=== PATIENT | female | born 1990 | race Caucasian/White ===

== ENCOUNTER 2020-02-24 03:48 | Inpatient (IN) | payer OTHER ==
[~2020-02-24] VITALS: Ht 160 cm; Wt 50.9 kg
[2020-02-24] VITALS (15 sets, daily range): BP systolic 90–111; BP diastolic 50–73
[2020-02-24] MEDS ORDERED: nitroGLYCERIN 1gm ointment UD TP ONE (03:55)
[2020-02-24] MEDS ORDERED: morphine 4 MG/ML inj SYRINge IV ONE (04:15)
[2020-02-24] MEDS ORDERED: ondansetron/PF 4mg/2ml inj IV ONE (04:15)
[2020-02-24] MEDS ORDERED: normal saline 1000ML IV soln IVB ONE (04:15)
[2020-02-24] MEDS ORDERED: morphine 2 MG/ML inj. syringe IV PRN ×4 (04:15→11:15)
[2020-02-24] MEDS ORDERED: iohexol 300mg/ml 100ml inj. ONE (04:30)
[2020-02-24 04:42] LABS: BASOPHILS # (AUTO) 0.1 X10'3 (0-0.2); BASOPHILS % (AUTO) 0.3 % (0-1); EOSINOPHILS # (AUTO) 0.2 X10'3 (0-0.9); HEMATOCRIT 38.4 % (35.0-45.0); LYMPHOCYTES % (AUTO) 3.9 % (21-51); MEAN CORPUSCULAR HEMOGLOBIN 29.7 PG (27.0-31.0); MEAN CORPUSCULAR HGB CONC 33.8 g/dL (33.0-36.5); MEAN CORPUSCULAR VOLUME 87.8 FL (78-98); MEAN PLATELET VOLUME 10.6 FL (7.4-10.4); NEUTROPHILS # (AUTO) 22.6 X10'3 (1.8-7.7); NEUTROPHILS % (AUTO) 90.8 % (42-75); PLATELET COUNT 256 X10'3 (140-440); RED BLOOD COUNT 4.37 X10'6 (4.20-5.60); RED CELL DISTRIBUTION WIDTH 11.9 % (11.5-14.5); WHITE BLOOD COUNT 24.9 X10'3 (4.5-11.0)
[2020-02-24 04:47] LABS: PARTIAL THROMBOPLASTIN TIME 29 SECONDS (22-32)
[2020-02-24 04:50] LABS: ALANINE AMINOTRANSFERASE 19 U/L (12-78); ALBUMIN 3.2 G/DL (3.4-5.0); ALBUMIN/GLOBULIN RATIO 0.8 (1.1-1.5); ALKALINE PHOSPHATASE 109 IU/L (46-116); ANION GAP 8 (8-16); ASPARTATE AMINO TRANSFERASE 18 U/L (10-37); BILIRUBIN,TOTAL 0.5 MG/DL (0.1-1.0); BLOOD UREA NITROGEN 6 MG/DL (7-18); CALCIUM 8.7 MG/DL (8.5-10.1); CHLORIDE 105 MMOL/L (99-107); GLUCOSE 95 MG/DL (70-104); POTASSIUM 4.1 MMOL/L (3.5-5.1); SODIUM 142 MMOL/L (135-145); TOTAL CARBON DIOXIDE 29.5 MMOL/L (24-32); TOTAL PROTEIN 7.3 G/DL (6.4-8.2); eGFR 65 ML/MIN
[2020-02-24 04:57] LABS: TOTAL CELLS COUNTED 100
[2020-02-24 04:58] LABS: PLATELET ESTIMATE NORMAL
[2020-02-24] MEDS ORDERED: piperacillin/tazo 3.375gm/50ml 50 ML IV ONE (05:35)
[2020-02-24] MEDS ORDERED: MULT-85 PO (05:39)
[2020-02-24] MEDS: ondansetron/PF 4mg/2ml inj IV PRN ×2 (06:18→20:42)
[2020-02-24] MEDS ORDERED: LIDOcaine 2% 10ml TOPICAL JELLY (Urojet) TP ONE (06:20)
[2020-02-24] MEDS: normal saline 1000ml 1,000 ML IV SCH ×2 (07:10→16:33)
[2020-02-24] MEDS ORDERED: metroNIDAZOLE-Flagyl 500mg/NS 100 ML IV SCH (08:00)
--- NOTE | 2020-02-24 10:10 | NUR ---
Patient in room [facility]. I have received report from BIOLOGICAL LAB TECHNICIAN and had the opportunity to ask questions and assume patient care.
--- NOTE | 2020-02-24 10:50 | NUR ---
Problems reprioritized. Patient report given, questions answered & plan of care reviewed with Lee FORBES.
[2020-02-24] MEDS ORDERED: labetalol 20mg/4ml (5mg/ml) syringe IV PRN (11:15)
[2020-02-24] MEDS ORDERED: ondansetron/PF 4mg/2ml inj IV PRN (11:15)
[2020-02-24] MEDS ORDERED: ringers solution, lacted 1,000 ML IV SCH (11:15)
[2020-02-24] MEDS ORDERED: morphine 4 MG/ML inj SYRINge IV PRN (11:15)
[2020-02-24] MEDS ORDERED: hydrALAZINE 20mg/ml inj. IV PRN (11:15)
[2020-02-24] MEDS ORDERED: fentaNYL/PF 50MCG/1 ML 2ML syringe IV PRN ×2 (11:15)
[2020-02-24] MEDS ORDERED: LIDOcaine 1% w/epiNEPHrine 1:200,000 30ml vial ONE (11:27)
[2020-02-24] MEDS ORDERED: fentaNYL/PF 50MCG/1 ML 2ML syringe ONE (11:37)
[2020-02-24] MEDS ORDERED: MIDAZolam 5mg/5ml vial ONE (11:38)
--- NOTE | 2020-02-24 12:27 | NUR ---
Received from OR via surgical bed, accompanied by Anesthesiologist Karli and report given by Anesthesiolgist. Pt alert and orietned sats at 98% with no O2 and pain 0/10. Pt has feeling in both lower extremeties and moves toes. Gauze dressing to groin, escoto cath wtih clear yellow fluid. 20G to right AC present wtih LR at 100cc/hr.
--- NOTE | 2020-02-24 13:00 | NUR ---
Patient in room [facility]. I have received report from Kiarra FORBES and had the opportunity to ask questions and assume patient care.
--- NOTE | 2020-02-24 13:07 | NUR ---
Report called to receiving nurse. Transferred via surgical bed. Belongings in patients room. Special Issues communicated to receiving nurse Jack RN who is at bedside. BLL call light within reach VS stable and chart at bedside. Pt care transferred to Jack RN.
--- NOTE | 2020-02-24 16:23 | NUR ---
PAGER ID: [phone] MESSAGE: Jack Surg [id number] Re: [id number] Wenceslao Clarita Patient is back from procedure and I was wondering if you wanted to add a diet. Thanks Jack
[2020-02-24] MEDS: piperacillin/tazo 3.375gm/50ml 50 ML IV SCH ×2 (16:33→23:32)
--- NOTE | 2020-02-24 18:14 | NUR ---
Problems reprioritized. Patient report given, questions answered & plan of care reviewed with Cesilia FORBES.
--- NOTE | 2020-02-24 18:25 | NUR ---
Received report from primary care nurse Jack RN. Assumed patient care. Patient is awake and alert on room air. In no apparent distress. Call light and items of frequent use within reach. Will continue to monitor for changes.
[2020-02-24] MEDS: lactobacillus rhamnosus 10,000 MMU CELLS/CAPSULE PO SCH (19:39)
--- NOTE | 2020-02-24 20:20 | NUR ---
Paged MD to address patient requesting PO pain medication instead of IV. Pending call back
[2020-02-24] MEDS ORDERED: HYDROcodone/acetaminophen 10/325mg tab PO PRN (20:50)
[2020-02-24] MEDS: HYDROcodone/acetaminophen 5mg/325mg tablet PO PRN (23:29)
[2020-02-25] VITALS: BP 101/48
[2020-02-25] MEDS: normal saline 1000ml 1,000 ML IV SCH ×2 (01:51→10:51)
--- NOTE | 2020-02-25 06:25 | NUR ---
Reported off to Dory FORBES. Patient is awake and alert on room air in no apparent distress. Call light and items of frequent use within reach.
[2020-02-25 06:27] LABS: BASOPHILS % (AUTO) 0.2 % (0-1); EOSINOPHILS # (AUTO) 0.4 X10'3 (0-0.9); EOSINOPHILS % (AUTO) 2.1 % (0-6); HEMATOCRIT 34.9 % (35.0-45.0); HEMOGLOBIN 11.6 g/dl (12.0-16.0); LYMPHOCYTES # (AUTO) 2.4 X10'3 (1.1-4.8); LYMPHOCYTES % (AUTO) 11.3 % (21-51); MEAN CORPUSCULAR HEMOGLOBIN 29.3 PG (27.0-31.0); MEAN CORPUSCULAR HGB CONC 33.3 g/dL (33.0-36.5); MEAN CORPUSCULAR VOLUME 88.1 FL (78-98); MEAN PLATELET VOLUME 10.6 FL (7.4-10.4); MONOCYTES # (AUTO) 1.7 X10'3 (0-0.9); MONOCYTES % (AUTO) 7.9 % (2-12); NEUTROPHILS # (AUTO) 16.9 X10'3 (1.8-7.7); NEUTROPHILS % (AUTO) 78.5 % (42-75); PLATELET COUNT 236 X10'3 (140-440); RED BLOOD COUNT 3.96 X10'6 (4.20-5.60); RED CELL DISTRIBUTION WIDTH 11.9 % (11.5-14.5); WHITE BLOOD COUNT 21.5 X10'3 (4.5-11.0)
[2020-02-25 06:40] LABS: ALBUMIN 2.5 G/DL (3.4-5.0); ANION GAP 3 (8-16); BLOOD UREA NITROGEN 10 MG/DL (7-18); BUN/CREATININE RATIO 9.3 (6.6-38.0); CALCIUM 8.4 MG/DL (8.5-10.1); CHLORIDE 106 MMOL/L (99-107); CREATININE 1.08 MG/DL (0.40-0.90); GLUCOSE 70 MG/DL (70-104); POTASSIUM 4.3 MMOL/L (3.5-5.1); SODIUM 140 MMOL/L (135-145); TOTAL CARBON DIOXIDE 30.9 MMOL/L (24-32); eGFR 60 ML/MIN
[2020-02-25] MEDS: lactobacillus rhamnosus 10,000 MMU CELLS/CAPSULE PO SCH (07:14)
[2020-02-25 08:00] VITALS: BP 94/59
[2020-02-25] MEDS ORDERED: docusate sod 100mg capsule PO SCH (08:00)
[2020-02-25 08:18] LABS: LARGE PLATELETS FEW; PLATELET ESTIMATE NORMAL
[2020-02-25] MEDS: piperacillin/tazo 3.375gm/50ml 50 ML IV SCH ×2 (08:47→16:00)
[2020-02-25] MEDS: HYDROcodone/acetaminophen 5mg/325mg tablet PO PRN (08:48)
[2020-02-25 11:46] VITALS: BP 97/55
[2020-02-25] MEDS ORDERED: AMOX-100 PO (15:56)
--- NOTE | 2020-02-25 18:25 | NUR ---
Problems reprioritized. Patient report given, questions answered & plan of care reviewed with MOHIT FORBES.
--- NOTE | 2020-02-25 18:26 | NUR ---
Received report from primary care nurse Dory FORBES. Patient is awake and alert on room air and has been discharged pending arrival of ride. ETA 10 minutes.
--- NOTE | 2020-02-25 18:32 | NUR ---
Patient discharged with instructions and belongings.
== END 2020-02-25 18:38 | disposition home or self-care (01) | DRG 872 ==
LOC: ER 03:50 → ED HOLD 05:46 → UNDOADMIN 06:24 → ED HOLD 10:15 → SUR 3N 10:15
PROVIDERS: ADMIT Internal Medicine; ATTEND Internal Medicine
PROC: 0D9P3ZZ Drainage of Rectum, Percutaneous Approach (ICD-10-PCS; principal; 2020-02-24 11:44)
DX: A41.9 Sepsis, unspecified organism (principal); K61.2 Anorectal abscess; K62.89 Other specified diseases of anus and rectum
CPT/HCPCS: 99285; Z7506; 36415; 72193; 80048; 80053; 83605; 84145; 85025; 85610; 85730; 87040; 87070; 87075; 87076; 87077; 87081; 87185; 87186; A4618; A6253; A6449; A7000; G0378; J2250; J2270; J2405; J2543; J3010; J3490; J7030; J7120; Q9967